=== PATIENT | male | born 1945 | race Hispanic/Latino ===

== ENCOUNTER 2020-12-25 07:25 | Day surgery (SDC) | payer MEDICARE ==
[2020-12-25] MEDS ORDERED: ASPIRIN 325 MG TAB PO ONE (08:41)
[2020-12-25] MEDS ORDERED: SODIUM CHLORIDE 0.9% 100 ML IVPB IV ONE (08:42)
[2020-12-25 09:07] LABS: Basophils # (Auto) 0.1 K/mm3 (0.0-0.1); Basophils % (Auto) 1.3 % (0.0-1.8); Eosinophils # (Auto) 0.1 K/mm3 (0.0-0.4); Hematocrit 32.8 % (35.5-45.6); Hemoglobin 11.6 gm/dl (11.8-15.2); Lymphocytes # (Auto) 0.6 K/mm3 (1.2-5.4); Lymphocytes % (Auto) 13.6 % (13.4-35.0); Mean Corpuscular HGB Conc 36 % (32-34); Mean Corpuscular Volume 105 fl (84-94); Monocytes # (Auto) 0.5 K/mm3 (0.0-0.8); Monocytes % (Auto) 11.5 % (0.0-7.3); Platelet Count 104 K/mm3 (140-440); Red Blood Count 3.12 M/mm3 (3.65-5.03); Red Cell Distribution Width 15.5 % (13.2-15.2)
[2020-12-25] MEDS ORDERED: HEPARIN/NS 5000 UNIT/500ML 1,000 ML IR ONE (09:30)
[2020-12-25] MEDS ORDERED: HEPARIN 10,000 UNITS/10 ML VIAL ONE (09:30)
[2020-12-25 09:31] LABS: INR 0.91 (0.87-1.13)
[2020-12-25] MEDS ORDERED: NITROGLYCERIN SYRINGE 0 ML ONE (09:31)
[2020-12-25] MEDS ORDERED: VERAPAMIL 5 MG/2 ML INJ ONE (09:31)
[2020-12-25 09:32] LABS: BUN/Creatinine Ratio 21; Blood Urea Nitrogen 19 mg/dL (9-20); Calcium 9.5 mg/dL (8.4-10.2); Hemolysis Index 56; Partial Thromboplastin Time 23.5 Sec. (24.2-36.6)
[2020-12-25] MEDS ORDERED: SODIUM CHLORIDE 0.9% 500 ML 500 ML ONE (09:51)
[2020-12-25] MEDS ORDERED: INSULIN REGULAR, HUMAN 100 UNITS/1 ML ONE (09:52)
[2020-12-25] MEDS: fentaNYL 100 MCG/2 ML INJ ONE ×2 (10:11→10:23)
[2020-12-25] MEDS: LIDOCAINE (2%) 20 MG/1 ML VIAL 20 ML MDV INFILTRATI ONE ×2 (10:11→10:25)
[2020-12-25] MEDS: MIDAZOLAM 2 MG/2 ML INJ ONE ×2 (10:11→10:23)
--- NOTE | 2020-12-25 11:17 | Discharge Summary ---
Short Stay Discharge Plan Activity: advance as tolerated Weight Bearing Status: Partial Weight Bearing Diet: low fat, low cholesterol, low salt, diabetic Wound: keep clean and dry Special Instructions: no heavy lifting (3 days), hold Metformin (48 hrs) Follow up with: KALEN REY MD [Primary Care Provider] - 7 Days KATHYA CHO MD [Staff Physician] - 7 Days
--- NOTE | 2020-12-25 11:17 | Cardiac Catherization Report ---
DATE OF SERVICE: 12/25/2020 CARDIAC CATHETERIZATION REPORT REASON FOR PROCEDURE: Chest pain, history of coronary artery disease, chronic left ventricular dysfunction. PROCEDURES PERFORMED: 1. Left heart catheterization. 2. Selective left and right coronary angiography. 3. Left ventricular angiography. 4. Sedation time start 10:23, end 10:43. The patient was prepped and draped in a sterile fashion after informed consent. The right femoral artery was entered using Seldinger technique followed by placement of a 6-E[place] sheath. Selective left and right coronary angiography was performed using #4 right and left Ivonne catheters. The pigtail catheter was used for left ventricular angiography. The catheters were then removed, sheath removed and hemostasis achieved using manual compression. The patient was returned to the postprocedure unit in stable condition. There were no complications. FINDINGS: HEMODYNAMICS: Left ventricular end diastolic pressure was 11, following coronary angiography. The ascending aortic pressure was 110/72. There was no significant pressure gradient on pullback across the aortic valve. CORONARY ANGIOGRAPHY: Left main coronary artery was free of significant disease. The left anterior descending artery and its diagonal branches contained mild diffuse atherosclerosis. The circumflex artery contained a 50% stenosis of its distal segment. This lesion was unchanged from previous cardiac catheterization in 2013. The right coronary artery is dominant and contained mild luminal irregularities. The left ventricle was at least mildly dilated. There was a moderately severe diffuse hypokinesis. The left ventricular ejection fraction was 25-30%. CONCLUSIONS: 1. 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 2. Dilated, nonischemic cardiomyopathy, severe left ventricular systolic dysfunction, ejection fraction 25-30%. RECOMMENDATIONS: 1. Medical therapy for nonischemic cardiomyopathy and chronic systolic left ventricular failure. 2. Risk factor modification and medical therapy for mild to moderate nonobstructive single vessel disease of the distal circumflex. TID: [id number] RECEIPT: [id number] TAYLOR ALVAREZ
[2020-12-25] MEDS ORDERED: SODIUM CHLORIDE 0.9% 1000 ML 1,000 ML IV SCH (12:00)
[2020-12-25] MEDS ORDERED: traMADol 50 MG TAB PO PRN (12:00)
[2020-12-25 14:47] VITALS: BP 108/78
[2020-12-25] MEDS ORDERED: HEPARIN 5,000 UNIT/1 ML VIAL SUB-Q NR (15:15)
--- NOTE | 2020-12-26 17:54 | Electrocardiograph Report ---
[facility] Test Date: 2020-12-25 Test Time: 08:31:18 Pat Name: JHONNY DELCID Department: Room: Gender: M Pick Up Operator: PILO : 1945 Requested By: JANETH WHELAN Order Number: [id number] Reading MD: Janeth Whelan Measurements Intervals [place] Rate: 106 P: 258 WI: 61 QRS: -68 QRSD: 143 T: 65 QT: 425 QTc: 566 Interpretive Statements Sinus tachycardia Probable left atrial enlargement RBBB and LAFB Prolonged QT interval No previous ECG available for comparison Electronically Signed On 12-26-2020 17:54:04 EDT by Janeth Whelan
== END 2020-12-25 15:25 | disposition home or self-care (01) ==
LOC: CATHLABREC 07:25
PROVIDERS: ATTEND Internal Medicine Cardiovascular Disease
DX: R07.89 Other chest pain (principal); I25.10 Atherosclerotic heart disease of native coronary artery without angina pectoris; I42.0 Dilated cardiomyopathy; E78.00 Pure hypercholesterolemia, unspecified; I48.91 Unspecified atrial fibrillation; I10 Essential (primary) hypertension; G47.30 Sleep apnea, unspecified; K21.9 Gastro-esophageal reflux disease without esophagitis; M19.90 Unspecified osteoarthritis, unspecified site; Z88.8 Allergy status to other drugs, medicaments and biological substances; Z79.899 Other long term (current) drug therapy; Z87.891 Personal history of nicotine dependence; Z98.890 Other specified postprocedural states; Z98.49 Cataract extraction status, unspecified eye; Z87.442 Personal history of urinary calculi; Z82.49 Family history of ischemic heart disease and other diseases of the circulatory system
CPT/HCPCS: 36415; 80048; 85025; 85610; 85730; 93005; 93458; 99156; C1894; J1644; J2250; J3010; J7040; J1815; Q9967